=== PATIENT | male | born 1965 | race African-American/Black ===

== ENCOUNTER 2025-05-18 10:06 | Emergency (ER) | payer OTHER ==
[~2025-05-18] VITALS: Ht 177.8 cm; Wt 99.9 kg
[2025-05-18] MEDS ORDERED: AMLO-258 PO (11:12)
[2025-05-18] MEDS ORDERED: METF-1211 PO (11:12)
[2025-05-18] MEDS ORDERED: HYDR25TA2 PO (11:12)
[2025-05-18] MEDS ORDERED: LOSA-382 PO (11:12)
[2025-05-18] MEDS ORDERED: RISP-31 PO (11:12)
[2025-05-18] MEDS ORDERED: ALBU18HF12 IH (11:12)
[2025-05-18] MEDS ORDERED: INSU100V50 SQ (11:12)
[2025-05-18 12:01] LABS: PLATELET COUNT (AUTO) 322 K/uL (150-450); RED BLOOD CELL COUNT(AUTO) 4.74 MIL/uL (4.50-5.90); RED CELL DISTRIBUTION WIDTH 13.6 % (11.5-14.5); WHITE BLOOD COUNT (AUTO) 12.1 K/uL (4.5-11.0)
[2025-05-18] MEDS ORDERED: IOHEXOL 350 MG/ML 100 ML VIAL ONE (12:01)
[2025-05-18] MEDS ORDERED: SODIUM CHLORIDE 0.9% 100 ML ONE (12:01)
[2025-05-18 12:12] LABS: ASPARTATE AMINOTRANSFERASE 14 U/L (15-37); CALCIUM, TOTAL 8.9 mg/dL (8.8-10.5); CREATININE 1.38 mg/dL (0.60-1.30); GLOMERULAR FILTR. RATE CALC > 60 mL/min (>60); GLUCOSE,RANDOM 102 mg/dL (70-110); TOTAL PROTEIN, SERUM 8.0 g/dL (6.4-8.2); UREA NITROGEN, BLOOD 23 mg/dL (7-18)
[2025-05-18 12:38] LABS: SODIUM SERUM 142 mmol/L (136-145)
[2025-05-18 14:59] VITALS: TEMP 98.3
[2025-05-18] MEDS: DOXYCYCLINE HYCLATE 100 MG in DEXTROSE 5%-WATER 100 ML IV ONE (15:08)
[2025-05-18] MEDS: MORPHINE SULFATE 2 MG/ML SYRINGE IVP ONE (20:53)
[2025-05-18] MEDS ORDERED: ATOR10TA69 PO (21:25)
[2025-05-18] MEDS ORDERED: MIRT-89 PO (21:26)
[2025-05-19] MEDS: PIPERACILLIN/TAZO 3.375 GM/D5W 50 ML IV ONE (04:19)
[2025-05-19] MEDS: DOXYCYCLINE HYCLATE 100 MG in DEXTROSE 5%-WATER 100 ML IV ONE (04:23)
[2025-05-19] MEDS: FentaNYL CITRATE PF 100 MCG/2 ML VIAL IVP ONE (05:52)
[2025-05-19 06:51] VITALS: BP 120/70; PULSE 73; RESP 16; O2SAT 94
== END 2025-05-19 06:56 | disposition short-term general hospital (02) ==
LOC: EMS 11:07
DX: J34.0 Abscess, furuncle and carbuncle of nose (principal); E11.9 Type 2 diabetes mellitus without complications; E78.00 Pure hypercholesterolemia, unspecified; I10 Essential (primary) hypertension; J45.909 Unspecified asthma, uncomplicated; Z98.890 Other specified postprocedural states; Z88.6 Allergy status to analgesic agent; Z79.899 Other long term (current) drug therapy
CPT/HCPCS: 99285; 96365; 70487; 96375 ×2; 80053; 87205; 82962; 85025; 87040; 36415; 87070; 96367; 96368; Q9967; J3490 ×2; J2270; J7060 ×2; J7050; J3010; J2543; 87186